=== PATIENT | male | born 1940 | race Caucasian/White ===

== ENCOUNTER 2020-12-29 23:30 | Inpatient (IN) | payer MEDICARE ==
[~2020-12-29] VITALS: Ht 188 cm; Wt 117.9 kg
[2020-12-29 23:32] VITALS: BP 177/145
[2020-12-29] MEDS ORDERED: NORVASC 2.5 MG2.5 MG PO (23:40)
[2020-12-29] MEDS ORDERED: SYNTHROID125 MC1 PO (23:41)
[2020-12-29] MEDS ORDERED: IRON325 M1 PO (23:41)
[2020-12-29] MEDS ORDERED: LIPITOR 10 MG10 M1 PO (23:41)
[2020-12-29] MEDS ORDERED: CARVEDILOL12.5 MG PO (23:41)
[2020-12-29] MEDS ORDERED: AMARYL2 M1 PO (23:41)
[2020-12-29] MEDS ORDERED: LASIX 40 MG TAB40 MG PO (23:41)
[2020-12-29] MEDS ORDERED: TRAMADOL 50 MG50 MG PO (23:42)
[2020-12-29] MEDS ORDERED: OXYCODONE HCL 55 MG PO (23:42)
[2020-12-30] VITALS (7 sets, daily range): BP systolic 113–132; BP diastolic 52–72
[2020-12-30 00:22] LABS: ABSOLUTE LYMPHOCYTES 0.8 thou/uL (0.8-5.3); ABSOLUTE MONOCYTES 1.3 thou/uL (0.0-1.2); ABSOLUTE NEUTROPHILS 9.4 thou/uL (1.6-8.1); BASOPHILS 0.3 %; HEMATOCRIT 29.5 % (42.0-52.0); HEMOGLOBIN 9.9 gm/dL (14.0-18.0); MCH 28.6 pg (26.0-34.0); MCHC 33.6 g/dL (28.0-37.0); MCV 85.1 fL (80.0-100.0); MONOCYTES 11.3 %; NUCLEATED RBCS 0 /100WBC; PLATELET COUNT* 212 thou/uL (150-400); POLYS 81.4 %; RBC 3.47 mil/uL (4.50-6.00); RDW-CV 17.4 % (10.5-14.5); WBC 11.6 thou/uL (4.0-11.0)
[2020-12-30 00:31] LABS: CALCIUM 9.1 mg/dL (8.5-10.1); CREATININE 0.9 mg/dL (0.6-1.3); POTASSIUM 3.8 mmol/L (3.5-5.1)
[2020-12-30 00:37] LABS: MAGNESIUM 1.7 mg/dL (1.8-2.4); TOTAL BILIRUBIN 0.5 mg/dL (<0.1-1.0); TOTAL PROTEIN 6.8 g/dL (6.4-8.2)
[2020-12-30] MEDS ORDERED: NORVASC10 MG PO (07:38)
[2020-12-30] MEDS ORDERED: ELIQUIS5 MG PO (07:38)
[2020-12-30] MEDS ORDERED: ATORVASTATIN CA80 MG PO (07:38)
[2020-12-30] MEDS ORDERED: CARVEDILOL12.5 MG PO (07:39)
[2020-12-30] MEDS ORDERED: LASIX 40 MG TAB40 M2 PO (07:40)
[2020-12-30] MEDS ORDERED: VITAMIN B-121000 MC2 SUBLING (07:41)
[2020-12-30] MEDS ORDERED: AMARYL4 MG PO (07:41)
[2020-12-30] MEDS ORDERED: LISINOPRIL5 MG PO (07:42)
[2020-12-30] MEDS ORDERED: LEVOTHYROXINE150 MC1 PO (07:42)
[2020-12-30] MEDS ORDERED: KLOR-CON 10 ER10 MEQ PO (07:42)
[2020-12-30] MEDS ORDERED: SPIRONOLACTONE25 MG PO (07:42)
[2020-12-30] MEDS ORDERED: FLOMAX0.4 MG PO (07:43)
--- NOTE | 2020-12-30 14:46 | EKG ---
[place] [address] ELECTROCARDIOGRAM REPORT Name: CHEO WRIGHT Room: [facility]#: [id number] Admission: 12/29/20 Attend Phys: Discharge: Date of : 42 Date of Service: 12/29/20 2333 Report #: [id number] THIS REPORT FOR: //name// [facility] ED Test Date: 2020-12-29 Test Time: 23:33:25 Pat Name: CHEO WRIGHT Department: Room: [place] [address] Gender: M Web Content & Social Media Manager: [place] : 1940 Requested By: Moni Tucker Order Number: [id number] MD: Jona De Los Santos Measurements Intervals [place] Rate: 91 P: -17 WI: 145 QRS: -74 QRSD: 169 T: 114 QT: 397 QTc: 489 Interpretive Statements Atrial-sensed ventricular-paced complexes with pac No further analysis attempted due to paced rhythm No previous ECG available for comparison Electronically Signed On 12-30-2020 14:46:48 CDT by Jona De Los Santos [email or web address] <ELECTRONICALLY SIGNED> By: Jona De Los Santos MD, [facility] 12/30/20 1446 2333 [id number] Jona De Los Santos MD, [facility] /EPI
[2020-12-31] VITALS: BP 99/50
[2020-12-31 06:13] LABS: HEMATOCRIT 27.8 % (42.0-52.0); HEMOGLOBIN 9.3 gm/dL (14.0-18.0); MCH 28.4 pg (26.0-34.0); MCHC 33.4 g/dL (28.0-37.0); MPV 7.5 fl. (7.2-11.1); RBC 3.27 mil/uL (4.50-6.00); RDW-CV 17.3 % (10.5-14.5)
[2020-12-31 06:37] LABS: CREATININE 1.1 mg/dL (0.6-1.3)
[2020-12-31 06:42] LABS: POTASSIUM 2.9 mmol/L (3.5-5.1)
[2020-12-31 08:00] VITALS: BP 116/52
[2020-12-31 16:00] VITALS: BP 108/46
[2020-12-31 20:15] VITALS: BP 127/58
[2021-01-01] VITALS (7 sets, daily range): BP systolic 99–124; BP diastolic 49–58
[2021-01-01 05:36] LABS: GLYCOHEMOGLOBIN (HGB A1C) 6.2 % (4.8-5.6)
[2021-01-01 10:24] LABS: HEMATOCRIT 29.9 % (42.0-52.0); HEMOGLOBIN 9.9 gm/dL (14.0-18.0); MCH 28.4 pg (26.0-34.0); MCHC 33.1 g/dL (28.0-37.0); MCV 85.8 fL (80.0-100.0); RBC 3.49 mil/uL (4.50-6.00); RDW-CV 17.3 % (10.5-14.5); WBC 10.2 thou/uL (4.0-11.0)
[2021-01-01 10:31] LABS: CALCIUM 8.5 mg/dL (8.5-10.1); CREATININE 1.1 mg/dL (0.6-1.3)
[2021-01-01 10:32] LABS: POTASSIUM 2.6 mmol/L (3.5-5.1)
[2021-01-02 04:00] VITALS: BP 128/63
[2021-01-02 08:00] VITALS: BP 122/48
[2021-01-02 13:40] VITALS: BP 117/49
[2021-01-02 16:00] VITALS: BP 103/43
--- NOTE | 2021-01-02 18:33 | CON ---
[address] [address] CONSULTATION Name: CHEO WRIGHT Room: [address] ADM IN .R.#: [id number] Admission: 12/31/20 Attend Phys: Janet Parikh Discharge: Date of : 42 Report #: [id number] THIS REPORT FOR: cc: FAM - Family physician unknown FAM - Family physician unknown Prateek Monreal MD LOCATED WITHIN [facility] ~ DOC #: [id number] Prateek Monreal MD INDICATION: Pacing defibrillator interrogation. HISTORY OF PRESENT ILLNESS: The patient is a 80-year-old gentleman who was admitted to the hospital through the emergency room yesterday with intractable nausea and vomiting. The patient had recent right knee replacement and presumably had gastrointestinal upset and reaction to narcotic analgesics. The patient's symptoms are gradually improving. The patient was noted to have spikes on the child monitor that did not correspond with QRS complexes prompting consultation. The patient is without cardiac complaint. The patient has a history of his first myocardial infarction in . He had 2-vessel coronary artery bypass grafting with a KING graft to the LAD and saphenous vein graft to the distal right coronary artery in 2000. Subsequent to that, he has had 4 stents placed. From review of the records, it appears that he has an ischemic cardiomyopathy. He is status post pacing ICD placement. He has a biventricular ICD in place. He does have a history of congestive heart failure in the past. He is not having any acute exacerbation at this time. He is not having any symptoms to suggest angina. Interrogation of his biventricular ICD today shows normal pacing, sensing and impedances. He is currently in atrial fibrillation. He does have paroxysmal atrial fibrillation and is chronically anticoagulated with Eliquis. PAST MEDICAL HISTORY: 1. Coronary artery disease. 2. Ischemic cardiomyopathy. 3. Coronary artery bypass grafting 2 vessels in 2000. 4. Biventricular ICD placement in 2012. 5. Previous percutaneous coronary intervention with placement of total of 4 stents. 6. Chronic systolic heart failure. 7. Paroxysmal atrial fibrillation. 8. Chronic anticoagulation. 9. Hypercoagulable state due [place] [address] CONSULTATION Name: RIGODARLENECHEO Room: [address] IN [facility]#: [id number] Admission: 12/31/20 Attend Phys: Janet Parikh Discharge: Date of : 42 Report #: [id number] 10. Hypertension. 11. Type 2 diabetes mellitus. 12. Hernia repair remotely. 13. Bilateral cataract surgery. 14. Remote left knee replacement. 15. Recent right knee replacement. 16. Hyperlipidemia. HOME MEDICATIONS: Amlodipine 2.5 mg daily, atorvastatin 10 mg daily, carvedilol 12.5 mg b.i.d., iron sulfate 325 mg daily, furosemide 40 mg daily, glimepiride 1 tablet daily, levothyroxine 125 mcg daily, tramadol 50 mg t.i.d. p.r.n., oxycodone IR 5 mg q.4 hours p.r.n., pain. ALLERGIES: ZETIA AND METFORMIN. SOCIAL HISTORY: The patient is a nonsmoker. He does not drink alcohol. FAMILY HISTORY: Noncontributory. REVIEW OF SYSTEMS: 1. A 14-point review of systems is positive for joint pain and recent knee replacement with discomfort. 2. Nausea and vomiting without hematemesis. 3. Occasional lightheadedness and dizziness. Otherwise, 14-point review of systems negative. PHYSICAL EXAMINATION: VITAL SIGNS: Stable. Blood pressure 110/57 and pulse 76, appears to be a paced rhythm on telemetry. GENERAL: This is a moderately obese, pleasant white male in no distress. HEENT: Head is normocephalic, atraumatic. Extraocular muscles intact. Mucous membranes are moist. NECK: Examination of the neck shows no jugular venous distention. CHEST: Examination of the chest reveals clear lung kumar without wheezes or rales. CARDIAC: Exam reveals a regular rhythm. I do not appreciate gallop or murmur. ABDOMEN: Examination of the abdomen reveals a protuberant abdomen. Bowel sounds are diminished, but present. Somewhat tympanitic. EXTREMITIES: Examination of the extremities shows trace to 1+ ankle edema bilaterally. SKIN: Dry. DIAGNOSTIC DATA: A 12-lead EKG shows ventricular[place] [address] CONSULTATION Name: CHEO WRIGHT Room: [address] IN M.R.#: [id number] Admission: 12/31/20 Attend Phys: Janet Parikh Discharge: Date of : 42 Report #: [id number] IMPRESSION AND RECOMMENDATIONS: 1. Pacing defibrillator in place. Interrogation today shows normal function. 2. Ischemic cardiomyopathy, presently compensated. 3. Coronary artery disease, presently stable. He is not having any angina. 4. Remote history of coronary artery bypass grafting as outlined above. 5. Paroxysmal atrial fibrillation. The patient is chronically anticoagulated and having no bleeding problems. 6. Hypertension, presently stable on current regimen. 7. Dyslipidemia. Continue atorvastatin 10 mg daily. 8. Type 2 diabetes mellitus, per hospitalist. 9. Hypokalemia, on replacement protocol. From a cardiac standpoint, the patient appears stable. We will sign off, but available as needed. MD CANELO Gonzalez/LEONARDO <ELECTRONICALLY SIGNED> By: Prateek Monreal MD, LOCATED [facility] 01/02/21 1833 1249 28[facility] corporationshalini Monreal MD, ELAINE /nt
[2021-01-02 19:20] VITALS: BP 123/51
[2021-01-03] VITALS: BP 115/55
[2021-01-03 06:21] LABS: HEMATOCRIT 28.9 % (42.0-52.0); HEMOGLOBIN 9.8 gm/dL (14.0-18.0); MCH 28.6 pg (26.0-34.0); MCHC 34.1 g/dL (28.0-37.0); MCV 83.9 fL (80.0-100.0); MPV 6.5 fl. (7.2-11.1); RBC 3.44 mil/uL (4.50-6.00); RDW-CV 17.2 % (10.5-14.5); WBC 9.8 thou/uL (4.0-11.0)
[2021-01-03 06:40] LABS: ALBUMIN 2.6 g/dL (3.4-5.0); CALCIUM 8.5 mg/dL (8.5-10.1); CREATININE 0.9 mg/dL (0.6-1.3); MAGNESIUM 1.8 mg/dL (1.8-2.4); POTASSIUM 3.5 mmol/L (3.5-5.1); TOTAL BILIRUBIN 0.8 mg/dL (<0.1-1.0); TOTAL PROTEIN 6.5 g/dL (6.4-8.2)
[2021-01-03 08:00] VITALS: BP 103/51
[2021-01-03] MEDS ORDERED: ACETAMINOPHEN325 M1 PO (08:26)
[2021-01-03] MEDS ORDERED: AMARYL4 MG PO (08:26)
[2021-01-03] MEDS ORDERED: LIDOPATCH1 EACH TOP (08:26)
[2021-01-03] MEDS ORDERED: TRAMADOL 50 MG50 MG PO (08:26)
[2021-01-03] MEDS ORDERED: GABAPENTIN 100100 MG PO (08:26)
[2021-01-03 11:30] VITALS: BP 106/51
== END 2021-01-03 14:48 | DRG 389 ==
LOC: M.ERS 23:30 → M.TBA-ER 12-30 00:29 → M.ERS 12-30 00:29 → M.TBA-ER 12-30 16:59 → M.2W 12-30 17:25
PROVIDERS: Emergency Medicine; Internal Medicine; ADMIT Internal Medicine; ATTEND Internal Medicine
PROC: 4B02XTZ Measurement of Cardiac Defibrillator, External Approach (ICD-10-PCS; principal; 2020-12-31)
DX: K56.7 Ileus, unspecified (principal); E87.1 Hypo-osmolality and hyponatremia; I50.22 Chronic systolic (congestive) heart failure; Z20.822 Contact with and (suspected) exposure to COVID-19; M25.561 Pain in right knee; I25.5 Ischemic cardiomyopathy; I25.10 Atherosclerotic heart disease of native coronary artery without angina pectoris; I48.0 Paroxysmal atrial fibrillation; E78.5 Hyperlipidemia, unspecified; I11.0 Hypertensive heart disease with heart failure; Z96.653 Presence of artificial knee joint, bilateral; E87.6 Hypokalemia; R53.81 Other malaise; E11.649 Type 2 diabetes mellitus with hypoglycemia without coma; Z95.5 Presence of coronary angioplasty implant and graft; I25.2 Old myocardial infarction; Z95.0 Presence of cardiac pacemaker; Z88.8 Allergy status to other drugs, medicaments and biological substances; Z95.1 Presence of aortocoronary bypass graft; Z98.42 Cataract extraction status, left eye; Z98.41 Cataract extraction status, right eye; Z79.899 Other long term (current) drug therapy

== ENCOUNTER 2021-01-03 13:11 | Inpatient (IN) | payer MEDICARE ==
[~2021-01-03] VITALS: Ht 188 cm; Wt 117.5 kg
[~2021-01-03 13:11] MED LIST: ACETAMINOPHEN325 M1 PO; AMARYL2 M1 PO; AMARYL4 MG PO; ATORVASTATIN CA80 MG PO; CARVEDILOL12.5 MG PO; ELIQUIS5 MG PO; FLOMAX0.4 MG PO; GABAPENTIN 100100 MG PO; IRON325 M1 PO; KLOR-CON 10 ER10 MEQ PO; LASIX 40 MG TAB40 M2 PO; LASIX 40 MG TAB40 MG PO; LEVOTHYROXINE150 MC1 PO; LIDOPATCH1 EACH TOP; LIPITOR 10 MG10 M1 PO; LISINOPRIL5 MG PO; NORVASC 2.5 MG2.5 MG PO; NORVASC10 MG PO; OXYCODONE HCL 55 MG PO; SPIRONOLACTONE25 MG PO; SYNTHROID125 MC1 PO; TRAMADOL 50 MG50 MG PO; VITAMIN B-121000 MC2 SUBLING
[2021-01-03 15:04] VITALS: BP 103/58
[2021-01-03 19:43] VITALS: BP 98/54
[2021-01-04 04:45] LABS: HEMATOCRIT 27.7 % (42.0-52.0); HEMOGLOBIN 9.3 gm/dL (14.0-18.0); MCH 28.5 pg (26.0-34.0); MCHC 33.5 g/dL (28.0-37.0); MPV 6.5 fl. (7.2-11.1); RBC 3.26 mil/uL (4.50-6.00); RDW-CV 16.8 % (10.5-14.5); WBC 10.7 thou/uL (4.0-11.0)
[2021-01-04 05:31] LABS: CALCIUM 8.5 mg/dL (8.5-10.1); CREATININE 0.9 mg/dL (0.6-1.3); POTASSIUM 3.2 mmol/L (3.5-5.1)
[2021-01-04 08:34] VITALS: BP 112/67
[2021-01-04 15:48] LABS: ALBUMIN 2.6 g/dL (3.4-5.0); CALCIUM 8.4 mg/dL (8.5-10.1); CREATININE 1.1 mg/dL (0.6-1.3); POTASSIUM 3.7 mmol/L (3.5-5.1); TOTAL BILIRUBIN 0.8 mg/dL (<0.1-1.0); TOTAL PROTEIN 6.3 g/dL (6.4-8.2)
[2021-01-04 19:00] VITALS: BP 95/43
[2021-01-04 20:30] VITALS: BP 92/44
[2021-01-05 07:30] VITALS: BP 103/48
[2021-01-05 20:04] VITALS: BP 105/48
[2021-01-06 07:20] VITALS: BP 119/62
[2021-01-06 20:19] VITALS: BP 111/48
[2021-01-07 07:57] VITALS: BP 104/57
[2021-01-07 20:09] VITALS: BP 103/40
[2021-01-08 07:40] VITALS: BP 112/50
[2021-01-08 20:00] VITALS: BP 104/48
[2021-01-09 07:30] VITALS: BP 106/41
[2021-01-09 20:00] VITALS: BP 117/57
[2021-01-10 07:32] VITALS: BP 117/48
[2021-01-10 19:00] VITALS: BP 95/44
[2021-01-11 04:36] LABS: HEMATOCRIT 27.1 % (42.0-52.0); MCH 28.3 pg (26.0-34.0); MCHC 33.2 g/dL (28.0-37.0); MCV 85.1 fL (80.0-100.0); RBC 3.18 mil/uL (4.50-6.00); RDW-CV 17.3 % (10.5-14.5); WBC 9.6 thou/uL (4.0-11.0)
[2021-01-11 04:46] LABS: CALCIUM 8.6 mg/dL (8.5-10.1); CREATININE 1.1 mg/dL (0.6-1.3); POTASSIUM 3.7 mmol/L (3.5-5.1)
[2021-01-11 08:00] VITALS: BP 102/48
[2021-01-11 13:29] VITALS: BP 102/48
[2021-01-11 13:42] VITALS: BP 102/48
== END 2021-01-11 16:52 | disposition home or self-care (01) | DRG 948 ==
LOC: M.REH 13:11
PROVIDERS: ADMIT Physical Medicine & Rehabilitation; ATTEND Physical Medicine & Rehabilitation
DX: R53.81 Other malaise (principal); K56.7 Ileus, unspecified; E87.1 Hypo-osmolality and hyponatremia; I25.10 Atherosclerotic heart disease of native coronary artery without angina pectoris; E11.9 Type 2 diabetes mellitus without complications; I10 Essential (primary) hypertension; I25.2 Old myocardial infarction; Z96.651 Presence of right artificial knee joint; Z95.5 Presence of coronary angioplasty implant and graft; Z98.41 Cataract extraction status, right eye; Z98.42 Cataract extraction status, left eye; Z95.810 Presence of automatic (implantable) cardiac defibrillator; Z88.8 Allergy status to other drugs, medicaments and biological substances